=== PATIENT | male | born 1985 | race Caucasian/White ===

== ENCOUNTER 2019-12-02 17:25 | Outpatient (REF) | payer MEDICAID, SELFPAY ==
[2019-12-02 20:29] LABS: HCT 40.9 % (40.0-50.0); HGB 13.6 g/dL (13.5-17.5); Mean Corp. HGB Concentration 33.3 g/dL (32.0-36.0); Mean Corpuscular Volume 87.2 fL (80-95); Mean Platelet Volume 9.9 fL (8.0-11.0); Platelet Count 322 x1000/uL (130-400); RBC 4.69 m/cumm (4.50-6.00); RBC Distribution Width 13.9 % (11.8-14.1); White Blood Cell Count 9.76 k/cumm (4.4-10.8)
[2019-12-02 20:48] LABS: ALT 28 U/L (16-63); AST 16 U/L (15-37); Albumin 4.2 g/dL (3.4-5.0); Alkaline Phosphatase 77 U/L (46-116); Anion Gap 5.8 mmol/L (3-11); BUN 11 mg/dL (7-18); Bilirubin, Total 0.4 mg/dL (0.2-1.0); CO2 32.2 mmol/L (21.0-32.0); Calcium 9.3 mg/dL (8.5-10.1); Chloride 105 mmol/L (98-107); Glucose 93 mg/dL (74-106); Potassium 3.9 mmol/L (3.5-5.1); Sodium 143 mmol/L (136-145); TSH 0.89 uIU/mL (0.36-3.74)
== END 2019-12-02 17:45 ==
LOC: NCHCN 17:25
PROVIDERS: PCP Nurse Practitioner Family; Visit Provider Internal Medicine
DX: R63.4 Abnormal weight loss (principal)
CPT/HCPCS: 80053; 85027; 84443

== ENCOUNTER 2024-07-13 13:29 | Outpatient (REF) | payer MEDICAID, SELFPAY ==
[2024-07-13 20:03] LABS: Anion Gap 4.4 mmol/L (3-11); BUN 6 mg/dL (7-18); CO2 31.6 mmol/L (21.0-32.0); Calcium 9.4 mg/dL (8.5-10.1); Calculated LDL 78 mg/dL (<100); Chloride 106 mmol/L (98-107); Cholesterol 131 mg/dL (<200); Estimated GFR 99.41 (mL/min/1.73m2); Glucose 113 mg/dL (74-106); HDL Cholesterol 44 mg/dL (40-60); Potassium 4.2 mmol/L (3.5-5.1); Sodium 142 mmol/L (136-145); Triglyceride 48 mg/dL (<150)
[2024-07-13 20:19] LABS: Hemoglobin A1C 5.6 % (<5.7)
== END 2024-07-13 13:30 | disposition home or self-care (01) ==
LOC: NCHCN 13:29
PROVIDERS: PCP Nurse Practitioner Family; Visit Provider Nurse Practitioner Family
DX: Z00.00 Encounter for general adult medical examination without abnormal findings (principal); Z13.1 Encounter for screening for diabetes mellitus
CPT/HCPCS: 80048; 80061; 83036